=== PATIENT | female | born 1995 | race Caucasian/White ===

== ENCOUNTER 2019-08-30 20:12 | Emergency (ER) | payer OTHER ==
[2019-08-30 20:16] VITALS: BMI 31.7
[2019-08-30 21:21] LABS: BASO % 0.9 % (0-2.0); EOS % 3.4 % (0-4.5); HEMATOCRIT 37.8 % (32.4-45.2); HEMOGLOBIN 12.8 GM/dL (10.7-15.3); LYMPH % 26.6 % (8-40); MCH 30.4 pg (25.7-33.7); MCHC 33.9 g/dl (32.0-36.0); MEAN CELL VOLUME 89.8 fl (80-96); MEAN PLT VOLUME 8.6 fl (7.5-11.1); MONO % 6.3 % (3.8-10.2); NEUT % 62.8 % (42.8-82.8); PLATELET COUNT 235 K/MM3 (134-434); RBC 4.22 M/mm3 (3.60-5.2); RDW 14.1 % (11.6-15.6); WHITE BLOOD COUNT 7.2 K/mm3 (4.0-10.0)
[2019-08-30 21:27] LABS: INR 1.01 (0.83-1.09); PROTHROMBIN TIME (PATIENT) 11.9 SEC (9.7-13.0)
[2019-08-30 21:51] LABS: ALBUMIN 4.1 g/dl (3.4-5.0); BILIRUBIN,TOTAL 0.9 mg/dL (0.2-1); BLOOD UREA NITROGEN 14.4 mg/dL (7-18); CALCIUM 9.6 mg/dL (8.5-10.1); POTASSIUM 4.2 mmol/L (3.5-5.1)
[2019-08-30 22:27] LABS: EPI CELLS 11 /uL (0-25.1); HYALINE CASTS 22 /uL (0-3.1); PH,URINE 6.5 (5.0-8.0); URINE APPEARANCE CLOUDY; URINE BILIRUBIN NEGATIVE (NEGATIVE); URINE COLOR YELLOW; URINE GLUCOSE (UA) NEGATIVE (NEGATIVE); URINE KETONE NEGATIVE (NEGATIVE); URINE LEUK ESTERASE 2+ (NEGATIVE); URINE NITRITE POSITIVE (NEGATIVE); URINE PROTEIN NEGATIVE (NEGATIVE); URINE RBC 116 /uL (0-23.9); URINE WBC 375 /uL (0-25.8)
[2019-08-30] MEDS ORDERED: NITROFURANTOIN MACROCRYSTAL 50 MG CAPSULE (FP) PO SCH (22:30)
[2019-08-30] MEDS ORDERED: NITROFURANTOIN MACROCRYSTAL 50 MG CAPSULE (FP) ONE (22:38)
[2019-08-30 23:08] LABS: URINE BACTERIA MANY /uL (0-1359)
[2019-08-31 01:37] VITALS: BP 107/54; PULSE 70; TEMP 98.4
== END 2019-08-31 01:51 | disposition home or self-care (01) ==
LOC: JER 20:12
DX: N83.209 Unspecified ovarian cyst, unspecified side (principal); N39.0 Urinary tract infection, site not specified; R31.9 Hematuria, unspecified
CPT/HCPCS: 36415; 74177-TC; 76830-TC; 80053; 81003; 83690; 84703; 85025; 85610; 86850; 86900; 86901; 99284-25; Q9967

== ENCOUNTER 2023-04-09 22:56 | Emergency (ER) | payer OTHER ==
[2023-04-09 23:10] VITALS: RESP 18; BMI 28.8
[2023-04-10] MEDS ORDERED: SODIUM CHLORIDE 1,000 ML IV STA (00:01)
[2023-04-10] MEDS ORDERED: FAMOTIDINE 20 MG/50 ML IVPB 20 MG/50 ML MG IVPB ONE ×2 (00:01→00:05)
[2023-04-10] MEDS ORDERED: ACETAMINOPHEN 1000 MG/100 ML BAG IVPB ONE (00:01)
[2023-04-10] MEDS ORDERED: MAG HYDROX/AL HYDROX/SIMETH 30 ML UNIT-DOSE CUP PO ONE (00:01)
[2023-04-10] MEDS ORDERED: MAG HYDROX/AL HYDROX/SIMETH 30 ML UNIT-DOSE CUP ONE (00:05)
[2023-04-10] MEDS ORDERED: ACETAMINOPHEN INJECTION 100 ML IVPB ONE (00:05)
[2023-04-10 00:32] LABS: BASO % 1.5 % (0-2.0); EOS % 2.5 % (0-4.5); HEMATOCRIT 39.8 % (32.4-45.2); LYMPH % 36.6 % (8-40); MCH 31.1 pg (25.7-33.7); MCHC 35.2 g/dl (32.0-36.0); MEAN CELL VOLUME 88.5 fl (80-96); MEAN PLT VOLUME 7.3 fl (7.5-11.1); MONO % 7.7 % (3.8-10.2); NEUT % 51.7 % (42.8-82.8); PLATELET COUNT 276 10^3/uL (134-434); WHITE BLOOD COUNT 6.6 K/mm3 (4.0-10.0)
[2023-04-10 00:35] LABS: EPI CELLS 11 /uL (0-25.1); HYALINE CASTS 0 /uL (0-3.1); URINE APPEARANCE CLEAR; URINE BACTERIA 67 /uL (0-1359); URINE BILIRUBIN NEGATIVE (NEGATIVE); URINE COLOR YELLOW; URINE GLUCOSE (UA) NEGATIVE (NEGATIVE); URINE KETONE NEGATIVE (NEGATIVE); URINE LEUK ESTERASE TRACE (NEGATIVE); URINE NITRITE NEGATIVE (NEGATIVE); URINE PROTEIN NEGATIVE (NEGATIVE); URINE RBC 6 /uL (0-23.9); URINE UROBILINOGEN 0.2 mg/dL (0.2-1.0); URINE WBC 12 /uL (0-25.8)
[2023-04-10 00:44] LABS: CALCIUM 9.2 mg/dL (8.5-10.1)
[2023-04-10 00:48] LABS: CREATININE 0.9 mg/dL (0.55-1.3)
[2023-04-10 00:49] LABS: BILIRUBIN,TOTAL 0.4 mg/dL (0.2-1); TOT PROT 7.8 g/dl (6.4-8.2)
[2023-04-10 02:46] VITALS: BP 118/76; PULSE 70; TEMP 98.1
== END 2023-04-10 02:46 | disposition home or self-care (01) ==
LOC: JER 22:56
PROC: 3E033GC Introduction of Other Therapeutic Substance into Peripheral Vein, Percutaneous Approach (ICD-10-PCS; principal; 2023-04-10)
PROC: 3E033GC Introduction of Other Therapeutic Substance into Peripheral Vein, Percutaneous Approach (ICD-10-PCS; 2023-04-10)
DX: R42 Dizziness and giddiness (principal); R05.9 Cough, unspecified; R09.81 Nasal congestion; R10.9 Unspecified abdominal pain; R11.10 Vomiting, unspecified
CPT/HCPCS: 36415; 80053; 81003; 84703; 85025; 87086; 99285-25; J0131